=== PATIENT | female | born 1985 | race Two or more races ===

== ENCOUNTER 2020-10-06 10:52 | Outpatient (CLI) | payer OTHER ==
[2020-10-06 12:52] LABS: HEMOGLOBIN 13.2 gm/dl (12.3-15.3); RED BLOOD COUNT 4.37 M/UL (4.00-5.10); WHITE BLOOD COUNT 11.3 K/UL (4.5-11.0)
== END 2020-10-06 13:02 | disposition home or self-care (01) ==
LOC: GENOP 10:52 → EDSTATUS 10:58 → GENOP 13:02
PROVIDERS: Obstetrics & Gynecology
DX: Z01.812 Encounter for preprocedural laboratory examination (principal)
CPT/HCPCS: 36415; 81001; 85025

== ENCOUNTER 2020-10-08 05:26 | Inpatient (IN) | payer OTHER ==
[~2020-10-08] VITALS: Ht 144.8 cm; Wt 81.6 kg
[2020-10-08] MEDS ORDERED: NOVOLIN R100 UNIT/1 SC ×2 (06:22→06:24)
[2020-10-08] MEDS ORDERED: NOVOLIN N100 UNIT/1 SC ×2 (06:22→06:25)
[2020-10-08] MEDS ORDERED: PRENATABS FA T1 EACH PO (06:23)
[2020-10-08 07:18] LABS: BUN/CREATININE RATIO 16 (0-10)
[2020-10-08] MEDS ORDERED: DOCUSATE SODIU100 MG PO (10:03)
[2020-10-08] MEDS ORDERED: HYDROCODON-ACE1 EAC4 PO ×2 (10:03→10:21)
[2020-10-08] MEDS ORDERED: IBUPROFEN600 MG PO (10:03)
[2020-10-09 06:18] LABS: HEMOGLOBIN 12.6 gm/dl (12.3-15.3)
[2020-10-10] MEDS ORDERED: REGLAN10 MG PO (14:34)
[2020-10-10] MEDS ORDERED: HYDROCODON-ACE1 EAC4 PO (14:34)
== END 2020-10-10 14:47 | disposition home or self-care (01) | DRG 788 ==
LOC: OB 05:26
PROVIDERS: ADMIT Obstetrics & Gynecology
PROC: 10D00Z1 Extraction of Products of Conception, Low, Open Approach (ICD-10-PCS; principal; 2020-10-08 08:00)
DX: O34.211 Maternal care for low transverse scar from previous cesarean delivery (principal); O24.424 Gestational diabetes mellitus in childbirth, insulin controlled; O99.284 Endocrine, nutritional and metabolic diseases complicating childbirth; Z37.0 Single live birth; Z3A.39 39 weeks gestation of pregnancy; E03.9 Hypothyroidism, unspecified; Z20.822 Contact with and (suspected) exposure to COVID-19; Z83.3 Family history of diabetes mellitus; Z82.49 Family history of ischemic heart disease and other diseases of the circulatory system; Z79.4 Long term (current) use of insulin
CPT/HCPCS: 36415; 80048; 81001; 82800; 82962; 85014; 85018; 85025; 90471; 90715; C9113; J0690; J1885; J2274; J2405; J2550; J2590; J3010; J7030; J7120

== ENCOUNTER → 2022-02-26 | Outpatient (CLI) | payer OTHER ==
[~2022-02-26] MED LIST: DOCUSATE SODIU100 MG PO; HYDROCODON-ACE1 EAC4 PO; IBUPROFEN600 MG PO; NOVOLIN N100 UNIT/1 SC; NOVOLIN R100 UNIT/1 SC; PRENATABS FA T1 EACH PO; REGLAN10 MG PO
== END ==
LOC: EXRD 09:02
DX: M79.672 Pain in left foot (principal); M54.50 Low back pain, unspecified; M47.816 Spondylosis without myelopathy or radiculopathy, lumbar region
CPT/HCPCS: 72110; 73630